=== PATIENT | female | born 1965 | race American Indian/Alaskan Native ===

== ENCOUNTER 2017-07-17 12:20 | Day surgery (SDC) | payer OTHER ==
[2017-07-16 09:20] VITALS: BMI 26.5
--- NOTE | 2017-07-17 13:09 | CP.PCM.HP ---
History of Present Illness - History of Present Illness History of Present Illness: 52 y/o female presents to [facility] for surgical correction of the right foot for pes plano valgus. Patient states for many years she has noticed her foot become flatter and that now it has started to inhibit her walking. States that the more she uses and is on her foot the more is starts to hurt. patient states that she has tried corrective shoe gear and stretching and excercise but that she is still in alot of pain. Patient denies any truama to the area. Denies any f/c/n/v/sob. PMH: Denies Sx: C sxn 19 years ago w/o any reaction to anesthesia Social: Denies Allx: NDFDA Present on Admission - Present on Admission Any Indicators Present on Admission: No Review of Systems - Constitutional Constitutional: As Per HPI - Musculoskeletal Musculoskeletal: Joint Swelling Past Patient History - Past Medical History & Family History Past Medical History?: Yes - Past Social History Smoking Status: Never Smoked - MUSCULOSKELETAL/RHEUMATOLOGICAL Hx Musculoskeletal Disorders: Yes Other/Comment: HX: RIGHT FOOT PAIN - SURGICAL HISTORY Hx Surgeries: Yes Hx Section: Yes - ANESTHESIA Hx Anesthesia: Yes Hx Anesthesia Reactions: No Hx Malignant Hyperthermia: No Has any member of the family had a problem w/ anesthesia?: No Meds Allergies/Adverse Reactions: Allergies Allergy/AdvReac Type Severity Reaction Status Date / Time No Known Allergies Allergy Verified 07/15/17 08:41 Physical Exam - Constitutional Appears: Well, Non-toxic, No Acute Distress - Eye Exam Eye Exam: Normal appearance - Respiratory Exam Respiratory Exam: NORMAL BREATHING PATTERN - Cardiovascular Exam Cardiovascular Exam: REGULAR RHYTHM - Rectal Exam Rectal Exam: Deferred - Expanded Lower Extremities Exam Right Hip exam: absent: abrasion, crepitus, deformity, dislocation, ecchymosis, erythema, external rotation, full ROM, internal rotation, laceration, pelvic stability, shortening, swelling, tenderness, normal inspection Upper Leg exam: absent: abrasion, crepitus, deformity, dislocation, ecchymosis, erythema, full ROM, laceration, swelling, tenderness, normal inspection Lower Leg Exam: deformity, tenderness Ankle exam: swelling, tenderness. absent: FULL ROM Foot/Toe exam: deformity, swelling, tenderness Results - Vital Signs Recent Vital Signs: Last Vital Signs Temp 98.0 F 07/17/17 12:55 Pulse 100 H 07/17/17 12:55 Resp 20 07/17/17 12:55 BP 152/90 H 07/17/17 12:55 Pulse Ox 98 07/17/17 12:55 Assessment & Plan - Assessment and Plan (Free Text) Assessment: Right foot pes plano valgus with PT dysfuction Plan: Patient evaluated and chart and H/P placed into charts. Discussed surgical procedure with the patient. Discussed risks befits complication; patient understands Consent signed and placed into charts NWB status confirmed and PT to see patient. NPO status confirmed. To f/u with Dr. Loving.
[2017-07-17] MEDS ORDERED: Bupivacaine 0.5% Inj(30mL) ONE (14:32)
[2017-07-17] MEDS ORDERED: Lidocaine 1% Inj (20ml) ONE (14:32)
[2017-07-17] MEDS ORDERED: ceFAZolin IV 1 gm in Dextrose 1 GM/50 ML BAG IVPB ONE (14:32)
[2017-07-17] MEDS ORDERED: Lactated Ringer's 1,000 ML IV ONE ×2 (15:15→16:56)
[2017-07-17] MEDS ORDERED: Oxycodone/Acetaminophen 5/325 mg Tab PO PRN ×2 (19:12)
--- NOTE | 2017-07-17 19:15 | PCM.SURG1 ---
Surgeon's Initial Post Op Note - Surgeon's Notes Surgeon: MICHEL Aircraft Engine Mechanic: bibi PGY 3, garry PGY 2, bam PGY 1 Type of Anesthesia: General LMA, Local Pre-Operative Diagnosis: right pes planovalgus Operative Findings: see dictation Post-Operative Diagnosis: same Operation Performed: right medial calc slide. right PT tendon repair with advancement. right Cotton Specimen/Specimens Removed: PT tendon calcification Estimated Blood Loss: EBL {In ML}: 20 Blood Products Given: N/A Drains Used: No Drains, Joshua Irving Post-Op Condition: Good Date of Surgery/Procedure: 07/17/17 Time of Surgery/Procedure: 19:15
[2017-07-17] MEDS: HYDROmorphone 0.5 mg/0.5 ml ISec IVP PRN ×3 (19:21→19:48)
--- NOTE | 2017-07-17 19:58 | PCM.ANESB2 ---
Popliteal Nerve Block - Popliteal Nerve Block Date of Procedure: 07/17/17 Anesthesiologist: Olivier Pre-Procedure Diagnosis: Right flat foot Post-Procedure Diagnosis: Right flat foot correction Procedure Performed: Popliteal Nerve Block Right - Procedure Popliteal Nerve Block: This procedure was explained to the patient that it is for post-operative pain management. Consent was obtained after a thorough discussion with the patient regarding the benefits and possible complications of local anesthetic block of the sciatic nerve at the popliteal level. The patient was brought to the recovery room and standard monitors are applied. Time-out was held with the rec room nurse to confirm the correct surgery and the appropriate block. After applying oxygen by nasal cannula and administering IV Sedation, patient's operative leg was gently raised and supported and the groove in between the biceps femoris and vastus lateralis muscles was carefully palpated. The skin approximately 8cm above the popliteal crease was then marked. The ultrasound transducer was then applied to the posterior thigh approximately 8cm above the popliteal crease in the transverse plane and the sciatic nerve before its division was visualized lateral to the popliteal artery and in between the bicep femoris and semimembranosus/semitendinosus muscles. After identification, the lateral portion of the thigh was prepped with Betadine solution three times and Lidocaine 1% was injected subcutaneously for topical anesthesia. At this point, a # 21 gauge Stimuplex insulated 4 inch needle was inserted into pre-marked area and advanced in a perpendicular direction. The needle was inserted above the ultrasound transducer in-plane towards the sciatic nerve in a naskeqe-ud-ojxhek direction. Needle advancement was performed carefully under direct ultrasound visualization. After repeated negative aspiration, __20___cc of _0.5____ % _bupi___ was injected. Under ultrasound guidance the local anesthetics were observed surrounding sciatic nerve . The needle was removed intact and sterile dressing was applied. The patient tolerated the popliteal nerve block well with stable vital signs.
--- NOTE | 2017-07-17 20:03 | PCM.ANESB7 ---
Adductor Canal Block - Adductor Canal Block Date of Procedure: 07/17/17 Anesthiologist: Olivier Pre-Procedure Diagnosis: Right flat foot Post-Procedure Diagnosis: right flat foot correction Procedure Performed: Adductor Canal Block Right - Procedure Adductor Canal Block: The procedure was explained to the patient that it is for the post-operative pain management. Consent was obtained after a thorough discussion with the patient regarding the benefits and possible complications of local anesthetic adductor canal block of the femoral nerve. Standard monitors, as defined by the ASA, were applied to the patient. Time-out was held with theRR nurse to confirm the appropriate block. After applying supplemental oxygen and administering IV Sedation as needed, the patient was placed in supine position with and the operative leg was flexed slightly at the knee and externally rotated as needed, and was kept anatomically stable. The mid-thigh of the _right lower extremity was exposed. The ultrasound transducer was then applied transversely along the medial aspect, about midway down the thigh and the femoral artery and vein were identified in appropriate relation with the sartorius muscle. At this time, the femoral nerve was visualized lateral to the femoral artery within the canal. After thorough identification, this area area was prepped with Chloroprep solution three times and 1 % Lidocaine was injected subcutaneously for topical anesthesia. At this point, a #22 gauge Stimuplex 4-inch needle was inserted in-plane in a [id number] orientation, and advanced toward the femoral nerve. Advancement was performed carefully under direct ultrasound visualization.After negative aspiration, ___10__cc of _0.5____% __Bupi was injected _. Under ultrasound guidance the local anesthetics were observed spreading around the femoral nerve. The needle was removed intact and sterile dressing was applied. The patient had stable vital signs, was conscious and in no apparent distress. The patient tolerated the femoral nerve block well with stable vital signs.
[2017-07-17] MEDS ORDERED: HYDROmorphone 0.5 mg/0.5 ml ISec IVP PRN (20:04)
[2017-07-17 21:48] VITALS: BP 116/84; PULSE 84; RESP 9; TEMP 98.5; O2SAT 95
--- NOTE | 2017-07-18 08:03 | RAD ---
PROCEDURE: Intraoperative Fluoroscopy. HISTORY: Calcaneal slide FINDINGS: Fluoroscopic assistance was provided for calcaneal slide. Please
--- NOTE | 2017-07-18 09:54 | RAD ---
Right foot two views History: Pes planus deformity correction. Comparison: None available. Findings: Postsurgical changes with surgical hardware within the posterior calcaneus with calcaneal osteotomy and two prominent screws noted within the calcaneus. Lucency noted in the posterior calcaneus. Additional surgical hardware noted within the distal tarsal bones medially. Overlying cast obscures fine osseous detail. Mild to moderate hallux valgus deformity. Impression: Postsurgical changes. Mild to moderate hallux valgus deformity.
--- NOTE | 2017-07-22 12:01 | OP ---
PROCEDURE DATE: PREOPERATIVE DIAGNOSIS: 1. Right foot pes planovalgus. 2. Right foot posterior tibial tenosynovitis with grade 2 dysfunction POSTOPERATIVE DIAGNOSIS: same as above PROCEDURE PERFORMED: 1. Right foot medializing calcaneal slide osteotomy with screw fixation 2. Right foot posterior tibial tendon repair with advancement. 3. Right foot Cotton osteotomy with [employer] titanium wedge SURGEON: Myranda Loving DPM. ASSISTANTS: Devin Enriquez, PGY-3, Shanell Allen, PGY-2, and Roque Monsalve, PGY1. TYPE OF ANESTHESIA: General sedation with popliteal block. INDICATIONS: This patient is a 52-year-old female with the above-mentioned diagnosis. The patient exhausted all forms of conservative treatment at this time and wished to have surgical intervention for the conditions listed above. After careful explanation of risks, benefits, and complications for the proposed procedure, the patient signed the consent form. All questions and concerns were addressed at this time. Prior to taking the patient to the OR, n.p.o. status was verified and preoperative antibiotics were given. DESCRIPTION OF PROCEDURE: The patient was brought to the operating room, placed on the operating table in supine position. Pneumatic thigh tourniquet was placed on the patient's right thigh at 350 mmHg. Following induction of general sedation, the right foot and leg were prepped and draped in normal sterile manner and the procedure began. PROCEDURE #1: RIGHT FOOT MEDIALIZING CALCANEAL SLIDE OSTEOTOMY: At this time, with the extensive use of intraoperative fluoroscopy, first the lateral side of the right foot was focused on with a #18 needle, the most dorsal and plantar aspects of the lateral side of the right calcaneus were identified. At this time, utilizing #15 blade, a roughly 2 cm long oblique incision just posterior to the lateral malleolus and directly parallel to the lateral aspect of the right calcaneus was made. This incision was then carried deep making sure to retract all vital neurovascular structures. The sural nerve was identified and retracted and the peroneals were above the incision site kept out of the way of the incision site. At this time, the incision was deepened down to the border of the lateral calcaneus and with the use of intraoperative fluoroscopy, this positioning was identified. At this time, utilizing an [facility] retractor, the dorsal and plantar aspects of the incision was reflected away from the calcaneus and with the use of a sagittal saw, an oblique angle cut was made across the calcaneus in the fbbmxrc-as-ejo-medial side making sure to stop just on the medial side of the calcaneus as not to break through to enter the neurovascular structure on the opposite side. At this time, the saw was removed and the osteotomy was finished with osteotome. At this time, the foot was then plantarflexed to relieve tension on the Achilles and the posterior aspect of the osteotomy was then brought down and shifted medially roughly one-third of the way across the posterior aspect of the calcaneus. This allowed for the heel to come out of valgus and put into a more neutral position to allow for correction of the flat foot and restore arch of the patient. Distal osteotomy was then temporarily fixated with two K-wires that were in the set for the [employer] 7.0 cannulated screw system and at this time, the two K-wires were then measured and two parallel screws were placed, one plantar and one dorsal measuring with the [employer] 7.0 cannulated screw system. All the positioning of the screws were verified with utilization of extensive use of intraoperative fluoroscopy. At this time, the K-wires were then removed and the wound was flushed with copious amounts of normal sterile saline. The wound was then closed with 2-0, 3-0 and, 4-0 Vicryl, and 4-0 nylon in normal sterile manner. PROCEDURE #2: RIGHT FOOT POSTERIOR TIBIAL TENDON REPAIR WITH ADVANCEMENT: At this time, attention was directed to the medial aspect of the patient's right foot where utilizing a #15 blade, a roughly 4 cm long incision was made starting just distal to the medial malleolus, extending distally along the foot, overlying the navicular tuberosity at the insertion of posterior tibial tendon. This incision was then carried deep to reflect the sheath of the posterior tendon to retract all vital neurovascular structures. After the sheath was exposed, the posterior tibial tendon and its attachments to the navicular was identified. The posterior tibial tendon all along the course was noted to be diffusely calcified and extremely enlarged and so a decision was made to debride the length of the posterior tibial tendon past the medial malleolus, so the tendon was tenotomized at this time at the insertion onto the navicular and reflected back and all calcifications and thickening of the tendon were then resected and passed out of the operative field and sent for Pathology. At this time, with the use of the Arthrex 3.4 suture anchor system, a 3.4 suture anchor was placed into the medial aspect of the navicular and with the use of the attached FiberWire, the posterior tibial tendon was then advanced and reinserted onto the medial aspect of the navicular. The tendon was tightened with mild inversion to allow for the advancement of the tendon and to help maintain the arch correction. Following this, the tendon was then reinforced with 2-0 Vicryl along the course of the tendon and the wound was flushed with copious amounts of normal sterile saline. The wound was then closed with 3-0 and 4-0 Vicryl and 4-0 nylon in normal sterile manner. PROCEDURE #3: RIGHT FOOT COTTON OSTEOTOMY: At this time, attention was then directed to the dorsal medial aspect of the patient's right foot where utilizing a #15 blade, a roughly 1.5 cm long incision was made directly overlying the medial cuneiform directly medial to the extensor hallucis longus tendon. This incision was then carried deep retracting the tendon and all vital neurovascular structures. The periosteum was then reflected off of the medial cuneiform. With the use of a sagittal saw, a [id number]-fh-[id number] cut was made making sure not to break the plantar cortex of the medial cuneiform. At this time, the osteotomy was then wedged open and measured for use of insertion of a [employer] Cotton osteotomy graft. It was measured to be the 6.5, which was the largest [employer] implant and the implant was then inserted into the osteotomy site without complications. At this time, it was noted with the use of diffuse intraoperative fluoroscopy that the arch height has been re-corrected and restored to compare it versus preoperatively. This incision site was then flushed with copious amounts of normal sterile saline. The wound was then closed with 3-0 and 4-0 Vicryl and 4-0 nylon in normal sterile manner. POSTOPERATIVE CONDITION: Patient tolerated the anesthesia and procedure well and was transferred to recovery room with vital signs stable and neurovascular status intact to the right foot. The patient will follow up with Dr. Loving in her office as previously discussed. Devin Enriquez DPM Myranda Loving DPM GRANT
== END 2017-07-17 22:20 | disposition home or self-care (01) ==
LOC: C.SDS 12:20
PROVIDERS: ATTEND Podiatrist Foot & Ankle Surgery
DX: M21.41 Flat foot [pes planus] (acquired), right foot (principal); M20.41 Other hammer toe(s) (acquired), right foot; M67.821 Other specified disorders of synovium, right elbow; M65.9 Synovitis and tenosynovitis, unspecified; M21.071 Valgus deformity, not elsewhere classified, right ankle
CPT/HCPCS: 27691; 28300; 28304; 73620; 88304; 97116; 97161; C1713; G8978; G8979; G8980; J1170; J7120; Q4145

== ENCOUNTER 2017-07-27 03:01 | Emergency (ER) | payer SELFPAY ==
[2017-07-27 03:01] VITALS: BMI 26.5
--- NOTE | 2017-07-27 03:54 | C.PDOC ---
History Of Present Illness 52 year old female presents to the ER with a complaint of lower abdominal pain. Patient notes her last bowel movement was 7-9 days ago. She has been taking oxycodon for pain due to recent foot surgery. Patient feels like she wants to have a bowel movement but cannot; denies nausea or vomiting. Chief Complaint (Nursing): Abdominal Pain History Per: Patient History/Exam Limitations: no limitations Onset/Duration Of Symptoms: Days Current Symptoms Are (Timing): Still Present Location Of Pain/Discomfort: RUQ, LUQ Radiation Of Pain To:: None Quality Of Discomfort: Unable To Describe Associated Symptoms: Constipation. denies: Fever, Chills, Nausea, Vomiting Exacerbating Factors: None Alleviating Factors: None Last Bowel Movement: Days Ago Recent travel outside of the [place]: No Past Medical History Reviewed: Historical Data, Nursing Documentation, Vital Signs Vital Signs: Last Vital Signs Temp 98.1 F 07/27/17 03:12 Pulse 110 H 07/27/17 03:12 Resp 18 07/27/17 03:12 BP 142/90 07/27/17 03:12 Pulse Ox 100 07/27/17 06:07 - Medical History PMH: No Chronic Diseases Surgical History: No Surg Hx Family History: States: Unknown Family Hx - Social History Hx Alcohol Use: No Hx Substance Use: No - Immunization History Hx Tetanus Toxoid Vaccination: No Hx Influenza Vaccination: No Hx Pneumococcal Vaccination: No Review Of Systems Constitutional: Negative for: Fever, Chills Gastrointestinal: Positive for: Abdominal Pain, Constipation. Negative for: Nausea, Vomiting Physical Exam - Physical Exam Appears: Non-toxic, No Acute Distress Skin: Normal Color, Warm, Dry Head: Atraumatic, Normacephalic Eye(s): bilateral: Normal Inspection Oral Mucosa: Moist Chest: Symmetrical Cardiovascular: Rhythm Regular Respiratory: Normal Breath Sounds, No Rales, No Rhonchi, No Wheezing Gastrointestinal/Abdominal: Soft, No Tenderness Rectal: Other (Hard stools in the vault) Neurological/Psych: Oriented x3, Normal Speech ED Course And Treatment O2 Sat by Pulse Oximetry: 100 (Room air) Pulse Ox Interpretation: Normal Progress Note: Patient complains of pain when attempting to disimpact; will treat with fleet enema. Patient had large bowel movement which provided relief. Disposition - Disposition Referrals: [facility] [Outside] Disposition: HOME/ ROUTINE Disposition Time: 06:00 Condition: STABLE Prescriptions: Docusate Sodium [Colace] 100 mg PO BID #20 capsule Instructions: Constipation (DC), High Fiber Diet (ED) Forms: [facility] (Vietnamese) - Clinical Impression Clinical Impression: Constipation due to opioid therapy - Scribe Statement The provider has reviewed the documentation as recorded by the Scribe Brent Montoya All medical record entries made by the Scribe were at my direction and personally dictated by me. I have reviewed the chart and agree that the record accurately reflects my personal performance of the history, physical exam, medical decision making, and the department course for this patient. I have also personally directed, reviewed, and agree with the discharge instructions and disposition.
--- NOTE | 2017-07-27 04:09 | C.PDOC ---
Chief Complaint (Nursing): Abdominal Pain Past Medical History Vital Signs: Last Vital Signs Temp 98.1 F 07/27/17 03:12 Pulse 110 H 07/27/17 03:12 Resp 18 07/27/17 03:12 BP 142/90 07/27/17 03:12 Pulse Ox 100 07/27/17 05:41 - Medical History PMH: - Social History Hx Alcohol Use: No Hx Substance Use: No - Immunization History Hx Tetanus Toxoid Vaccination: No Hx Influenza Vaccination: No Hx Pneumococcal Vaccination: No ED Course And Treatment O2 Sat by Pulse Oximetry: 100 Disposition - Disposition Referrals: [facility] [Outside] Disposition: HOME/ ROUTINE Disposition Time: 06:00 Condition: STABLE Prescriptions: Docusate Sodium [Colace] 100 mg PO BID #20 capsule Instructions: Constipation (DC), High Fiber Diet (ED) Forms: [facility] (Macanese) - POA Present On Arrival: None - Clinical Impression Clinical Impression: Constipation due to opioid therapy
[2017-07-27] MEDS ORDERED: Magnesium Hydroxide Susp 30 ml UD PO STA (05:47)
[2017-07-27] MEDS ORDERED: Magnesium Hydroxide Susp 30 ml UD ONE (05:53)
[2017-07-27 06:30] VITALS: BP 135/80; PULSE 86; RESP 16; TEMP 98; O2SAT 98
== END 2017-07-27 06:30 | disposition home or self-care (01) ==
LOC: C.ER 03:01
DX: K59.03 Drug induced constipation (principal); T40.2X5A Adverse effect of other opioids, initial encounter; Y92.89 Other specified places as the place of occurrence of the external cause